=== PATIENT | female | born 1985 | race Caucasian/White ===

== ENCOUNTER 2022-02-10 20:36 | Emergency (ER) | payer OTHER, SELFPAY ==
[2022-02-10 20:51] VITALS: BP 160/80; PULSE 78; RESP 18; TEMP 36.8; O2SAT 99; BMI 37.7
--- NOTE | 2022-02-10 21:22 | CRLHL7_ITS ---
For Patients: As a result of the Cures Act, medical imaging exams and procedure reports are released immediately into your electronic medical record. You may view this report before your referring provider. If you have questions, please contact your health care provider. INDICATION: Syncopal episode. TECHNIQUE: Chest 2 view(s) COMPARISON: None. FINDINGS: Cardiomediastinal silhouette and pulmonary vasculature are normal. No focal consolidation. No pleural effusion, no definite pneumothorax. No acute chest wall abnormality. IMPRESSION: No focal consolidation. Dictated by Loli Wilkinson MD @ 02/10/2022 10:37:18 PM (Electronically Signed)
[2022-02-10 22:01] LABS: Chloride* 104 mmol/L (96-114); Potassium* 4.1 mmol/L (3.6-5.1); Sodium* 137 mmol/L (135-149)
[2022-02-10 22:04] LABS: Creatinine* 0.8 mg/dL (0.5-1.5); Est. Creatinine Clearance* 107.61; Estimated Glomerular Filt Rate 97 ml/min
[2022-02-10 22:05] LABS: Blood Urea Nitrogen* 16 mg/dL (5-24); Calcium* 9.2 mg/dL (8.4-10.6); Carbon Dioxide* 24 mmol/L (20-32); Glucose* 122 mg/dL (60-115)
[2022-02-10 22:06] VITALS: BP 125/80; PULSE 67
[2022-02-10 22:07] VITALS: BP 137/85; PULSE 80
[2022-02-10 22:07] LABS: Basophils Absolute Auto 0.02 K/uL (0.00-0.30); Basophils Percent Auto 0.3 % (0.0-3.0); Eosinophils Absolute Auto 0.07 K/uL (0.00-0.50); Hematocrit 39.5 % (33.0-51.0); Hemoglobin* 13.4 gm/dL (12.0-16.0); Immature Granulocytes Abs Auto 0.04 K/uL (0.00-0.30); Lymphocytes Absolute Auto 2.08 K/uL (0.90-2.90); Lymphocytes Percent Auto 30.5 % (20-44); Mean Corpuscular HGB Conc 34 gm/dL (32-36); Mean Corpuscular Hemoglobin 30 pg (26-34); Mean Corpuscular Volume 89 fL (80-100); Monocytes Percent Auto 7.6 % (0.0-11.0); Platelet Count* 260 K/uL (140-440); RDW Coefficient of Variation % 12.3 % (11.5-15.5); Red Blood Count 4.45 m/uL (4.00-5.20); White Blood Count* 6.83 K/uL (4.50-11.00)
[2022-02-10 22:08] LABS: C Reactive Protein* 0.6 mg/dL (0.5-1.0)
[2022-02-10 22:10] VITALS: BP 137/85; PULSE 80; RESP 18; O2SAT 98
[2022-02-10 22:10] LABS: Slide Review Reflex No
--- NOTE | 2022-02-10 22:10 | ED.SYNCOPE ---
HPI - Syncope General Date Seen: 02/10/22 Chief Complaint: Syncope/Fainted Stated Complaint: FAINTED,POSSIBLE HEART ISSUES Time Seen by Provider: 02/10/22 20:45 Source: patient and family Mode of arrival: ambulatory Limitations: no limitations History of Present Illness HPI narrative: Patient is a 36-year-old female who presents here with her family for evaluation of a syncopal episode that occurred at [employer] approximately 2 hours ago she was walking to the checkout felt hot and flushed and felt the feeling going over her body and then slumped to the ground, is with her young daughter, called 911. When she awoke few seconds later, EMS was there, seeing her, there were initial take was the EKG was normal with occasional PVCs but her blood pressure was slightly elevated in the 180-190 systolic range. Been told in the past that her blood pressure has been elevated has been able to convince her doctor not to start antihypertensives. She denies any chest pain, any shortness of breath, but wonders if this was a cardiac phenomena. She has never before had a episode where she passed out. She denies using alcohol drugs, but she is using a cleansing type diet for the past 2 weeks. She did eat a normal amount today and swears to me that she is drinking normal amount of fluids. The only other finding I can see, is the fact that she has had right leg swelling, for the last 2-3 weeks. No previous history DVTs, PEs, she has no personal cardiac coronary artery disease in her cholesterol is borderline, she is a social smoker when she drinks. She drinks really irregularly in no use of drugs. MD complaint: felt faint and collapsed Onset (ago): hour(s) Witnessed: Yes - by Bystander Injuries sustained associated with event: none Current symptoms: back to baseline Treatments prior to arrival: none Related Data Home Medications Medication Instructions Recorded Confirmed citalopram 40 mg tablet 40 mg PO DAILY 02/10/22 02/10/22 methylphenidate HCl 54 mg 54 mg PO DAILY 02/10/22 02/10/22 tablet,extended release 24 hr (Concerta) Allergies Allergy/AdvReac Type Severity Reaction Status Date / Time cephalexin [From Keflex] AdvReac Mild Nausea Verified 02/10/22 20:57 Penicillins AdvReac Mild Nausea Verified 02/10/22 20:57 Review of Systems Status of ROS: Reports: 10 or more systems reviewed and unremarkable except as noted in History and below [facility] Medical History Anxiety Surgical History History of Social History Smoking Status: Current some day smoker What tobacco products do you use: cigarettes Do you use any of these nicotine containing products: E-Cigarettes Second hand tobacco smoke exposure: Yes How often do you have a drink containing alcohol: never How often do you have six or more drinks on one occasion: Never AUDIT-C Alcohol total score: 0 Non-prescribed substance use: denies use Exam Narrative: Exam Narrative: Patient is seen in room 6 in no apparent distress, speaking to me normally, at baseline. Her pupils are equal round reactive to light there is no scleral icterus or redness, TMs bilaterally are normal her oropharynx is normal there is no adenopathy anterior posterior chains, no meningismus, oropharynx is otherwise normal. JVP is flat with normal carotid upstrokes and cranial nerves 3-12 are normal. Her chest is good air entry bilateral with no wheezing crackles noted heart sounds no clicks murmurs or gallops her abdomen is soft slightly obese there is no guarding no hepato-splenomegal, no tenderness of her abdomen. Skin reveals no petechiae or rashes , she was all extremities independently and well. Neurologically intact in upper lower extremities, Const: Vital Signs, click to edit/add: Vital Signs - 24 hr 02/10/22 20:51 02/10/22 22:06 02/10/22 22:07 Temperature 98.2 F Pulse Rate [Right Pulse Oximeter] 78 Pulse Rate [orthos tatic sitting Puls e Oximeter] 67 Pulse Rate [orthos tatic standing Pul se Oximeter] 80 Respiratory Rate 18 Blood Pressure [Ri ght Upper Arm] 160/80 H Blood Pressure [or thostatic sitting Left Arm] 125/80 Blood Pressure [or thostatic standing ] 137/85 Pulse Oximetry 99 Oxygen Delivery Me thod Room Air 02/10/22 22:10 Temperature Pulse Rate [Right Pulse Oximeter] 80 Pulse Rate [orthos tatic sitting Puls e Oximeter] Pulse Rate [orthos tatic standing Pul se Oximeter] Respiratory Rate 18 Blood Pressure [Ri ght Upper Arm] 137/85 Blood Pressure [or thostatic sitting Left Arm] Blood Pressure [or thostatic standing ] Pulse Oximetry 98 Oxygen Delivery Me thod Room Air Documenting provider has reviewed patient's vital signs: yes Common normals: no apparent distress Course Course Hospital Course: She remained stable in the emergency room her blood pressure came down, her laboratory tests returned normal findings, repeat EKG was also normal, with no changes she did have a occasional PVCs, but I do not think this is the cause of her syncopal episode. Troponins remain normal, her D-dimer was normal, Cardiac ultrasound is done of her heart, tough use due to size of the patient, but no evidence of significant pericardial abnormality, overall function appeared normal, no right ventricular dilatation noted. I was able to ultrasound her right leg, using the Clinton method, there is no no evidence of DVT, with full compressibility of her upper cfv and also her popliteal fossa. This corresponded well to the negative D-dimer. I was unable to save the views, over cardiac ultrasound in her legs, for this reason we will not charge her for these. I explained to them at this point I think the workup is complete, I think we have ruled out a lot of bad things, and most likely this was related to a vasovagal episode, her blood pressure came down nicely, but she is a bit labile with this, I wonder if this is related to some a essential hypertension or possibly the use of the Adderall. She should follow up with primary care for this. She was comfortable with this plan. Return here if increasing chest pain shortness of breath or other episodes and that this syncope recurs again I would consider cardiology evaluation. Vital Signs Vital signs: Initial Vital Signs Temperature 98.2 F 02/10/22 20:51 Temperature Source Temporal Artery Scan 02/10/22 20:51 Pulse Rate 78 02/10/22 20:51 Respiratory Rate 18 02/10/22 20:51 Blood Pressure 160/80 H 02/10/22 20:51 Blood Pressure Mean 106 02/10/22 20:51 Blood Pressure Position Sitting 02/10/22 20:51 Pulse Oximetry 99 02/10/22 20:51 Oxygen Delivery Method 02/10/22 20:51 Vital Signs Temperature 98.2 F 10/13/22 20:51 Pulse Rate 78 02/10/22 20:51 Respiratory Rate 18 02/10/22 20:51 Blood Pressure 160/80 H 02/10/22 20:51 Pulse Oximetry 99 02/10/22 20:51 Oxygen Delivery Method 02/10/22 20:51 Temperature 98.2 F 02/10/22 20:51 Pulse Rate 80 02/10/22 22:10 Respiratory Rate 18 02/10/22 22:10 Blood Pressure 137/85 02/10/22 22:10 Pulse Oximetry 98 02/10/22 22:10 Oxygen Delivery Method 02/10/22 22:10 MDM - Syncope MDM Narrative Medical decision making narrative: Life-threatening differential diagnosis considered include: Cardiac arrhythmia, acute blood loss, and intracranial bleed. Other differential diagnosis include but are not limited to vasovagal syncope, orthostatic syncope, seizure, as well as other etiologies Medical Records Attestation: I reviewed the patient's medical records. Lab Data Attestation: I reviewed the patient's lab results. Labs: Lab Results 02/10/22 02/10/22 02/10/22 Range/Units 21:24 21:37 21:37 WBC 6.83 (4.50-11.00) K/uL RBC 4.45 (4.00-5.20) m/uL Hgb 13.4 (12.0-16.0) gm/dL Hct 39.5 (33.0-51.0) % MCV 89 (80-100) fL MCH 30 (26-34) pg MCHC 34 (32-36) gm/dL RDW Coeff of Sam 12.3 (11.5-15.5) % Plt Count 260 (140-440) K/uL Neut % (Auto) 60.0 (42.0-72.0) % Lymph % (Auto) 30.5 (20-44) % [place] % (Auto) 7.6 (0.0-11.0) % Eos % (Auto) 1.0 (0.0-7.0) % Baso % (Auto) 0.3 (0.0-3.0) % Neut # (Auto) 4.10 (1.7-7.0) K/uL Lymph # (Auto) 2.08 (0.90-2.90) K/uL Raleigh # (Auto) 0.50 (0.00-0.90) K/UL Eos # (Auto) 0.07 (0.00-0.50) K/uL Baso # (Auto) 0.02 (0.00-0.30) K/uL Abs Immat Gran (auto) 0.04 (0.00-0.30) K/uL INR 0.95 (0.91-1.10) APTT 27 (23-33) Seconds D-Dimer Quant (PE/DVT) 0.34 (0.00-0.50) ug/ml Sodium (135-149) mmol/L Potassium (3.6-5.1) mmol/L Chloride (96-114) mmol/L Carbon Dioxide (20-32) mmol/L BUN (5-24) mg/dL Creatinine (0.5-1.5) mg/dL Estimated Creat Clear Estimated GFR ml/min Glucose (60-115) mg/dL Calcium (8.4-10.6) mg/dL C-Reactive Protein (0.5-1.0) mg/dL NT-Pro-B Natriuret Pep (0-125) PG/mL SARS-CoV-2 (PCR) (Negative) Influenza Type A (PCR) (Negative) Influenza Type B (PCR) (Negative) RSV (PCR) (Negative) POC Troponin I 0.00 L (0.01-0.04) ng/ml 02/10/22 02/10/22 02/10/22 Range/Units 21:37 21:37 22:55 WBC (4.50-11.00) K/uL RBC (4.00-5.20) m/uL Hgb (12.0-16.0) gm/dL Hct (33.0-51.0) % MCV (80-100) fL MCH (26-34) pg MCHC (32-36) gm/dL RDW Coeff of Sam (11.5-15.5) % Plt Count (140-440) K/uL Neut % (Auto) (42.0-72.0) % Lymph % (Auto) (20-44) % Raleigh % (Auto) (0.0-11.0) % Eos % (Auto) (0.0-7.0) % Baso % (Auto) (0.0-3.0) % Neut # (Auto) (1.7-7.0) K/uL Lymph # (Auto) (0.90-2.90) K/uL Raleigh # (Auto) (0.00-0.90) K/UL Eos # (Auto) (0.00-0.50) K/uL Baso # (Auto) (0.00-0.30) K/uL Abs Immat Gran (auto) (0.00-0.30) K/uL INR (0.91-1.10) APTT (23-33) Seconds D-Dimer Quant (PE/DVT) (0.00-0.50) ug/ml Sodium 137 (135-149) mmol/L Potassium 4.1 (3.6-5.1) mmol/L Chloride 104 (96-114) mmol/L Carbon Dioxide 24 (20-32) mmol/L BUN 16 (5-24) mg/dL Creatinine 0.8 (0.5-1.5) mg/dL Estimated Creat Clear 107.61 Estimated GFR 97 ml/min Glucose 122 H (60-115) mg/dL Calcium 9.2 (8.4-10.6) mg/dL C-Reactive Protein 0.6 (0.5-1.0) mg/dL NT-Pro-B Natriuret Pep 64 (0-125) PG/mL SARS-CoV-2 (PCR) Negative SARS-CoV-2 (Negative) Influenza Type A (PCR) Negative PCR FLU A (Negative) Influenza Type B (PCR) Negative PCR FLU B (Negative) RSV (PCR) Negative PCR RSV (Negative) POC Troponin I 0.00 L (0.01-0.04) ng/ml Imaging Data Chest x-ray: Attestation: I have reviewed the pertinent imaging results. My impression: Chest x-ray was normal Radiologist's impression: Patient: WILFRED PRINGLE Facility: [facility] Site . Site : 1985 Study: XRay Chest 2V-02/10/2022 10:20:43 PM Ordering Physician: Yari De La Vega Final Report: INDICATION: Syncopal episode. TECHNIQUE: Chest 2 view(s) COMPARISON: None. FINDINGS: Cardiomediastinal silhouette and pulmonary vasculature are normal. No focal consolidation. No pleural effusion, no definite pneumothorax. No acute chest wall abnormality. IMPRESSION: No focal consolidation. Dictated by Loli Wilkinson MD ECG Data Attestation: I personally reviewed and interpreted this ECG as follows: ECG interpretation date: 02/10/22 Prior ECG tracings: not available for review Interpretation: Normal sinus rhythm with a normal EKG, ventricular rate 63, normal QRS, normal QT normal QTC and CA interval Discharge Plan Discharge Clinical Impression: Syncope due to orthostatic hypotension, Vasovagal syncope, Syncope Patient Disposition: Home w/ Parent or Adult Condition: Improved Instructions: Syncope (ED), Hypotension (ED), Near Syncope (ED), Premature Ventricular Contractions (ED) Additional Instructions: I am happy that all your blood tests, EKGs, and tracings were all normal. This is all really good finding, I would recommend if this happens again that she follow up and get evaluated by Cardiology, but I would start there rate now. Lots of fluids and rest, know that if that feeling comes on again that she should lie down, as if he try walking or standing up you will pass out. This happens routinely on Sundays when I see the [facility] here. Follow-up with her primary care physician is suggested, to ensure that they agree with this. And to recheck her blood pressure. The interesting thing is that Adderall causes increased blood pressure, and only missing a day he would still be in your system. Prescriptions: No Action methylphenidate HCl [Concerta] 54 mg tablet extended release 24hr 54 mg PO DAILY Label Comments: TAKE ONE TABLET BY MOUTH DAILY citalopram 40 mg tablet 40 mg PO DAILY Label Comments: take 1 tablet by mouth daily Follow Up/Referrals: Provider,Not a Local [Primary Care Provider] - Stand Alone Forms: ReferStar Info Instructions
[2022-02-10] MEDS: 0.9 % SODIUM CHLORIDE 1000 ml 1,000 ML IV (22:11)
[2022-02-10 22:14] LABS: NT Pro B Type NatriureticPept* 64 PG/mL (0-125)
[2022-02-10 22:17] LABS: INR 0.95 (0.91-1.10); Partial Thromboplastin Time* 27 Seconds (23-33); Prothrombin Time 13.1 Seconds
[2022-02-10 22:20] LABS: D Dimer Quantitative* 0.34 ug/ml (0.00-0.50)
[2022-02-10 22:26] LABS: PCR FLU A Negative PCR FLU A (Negative); PCR FLU B Negative PCR FLU B (Negative); PCR RSV Negative PCR RSV (Negative); SARS PCR* Negative SARS-CoV-2 (Negative)
== END 2022-02-10 23:50 | disposition home or self-care (01) ==
PROVIDERS: Emergency Provider Family Medicine
DX: I95.1 Orthostatic hypotension (principal)
CPT/HCPCS: 36415; 71046; 80048; 83880; 85025; 85379; 85610; 85730; 86140; 87502; 87634; 87635; 93005; 96360; 96361; 99284; J7030

== ENCOUNTER 2024-10-07 11:07 | Emergency (ER) | payer BC, SELFPAY ==
--- OUTSIDE RECORDS SUMMARY | 2024-09-09 14:15 | XMS_ITS | Encounter Summary ---
Author Organization [employer] Address [address] [address] Care Team Providers Care Wire Web Worker Name Role Phone Mike Oliveros APRN, J2EE ANDROID DEVELOPER Primary Care Provide r Encounter Details Date Type Department Care Team (Late st Contact Info) Description 09/09/2024 2:15 PM CDT Nursing Visit [facility] Department [address], [address] [place] [address] Rn, We [facility] [address] [place], [place] [id number] Elevated blood pressure reading (Primary Dx); STEPHANIE (generalized anxiety disorder) Social History Tobacco Use Types Packs/Day Years Used Date Smoking Tobacco: Some Days Cigarettes 0.3 10 Smokeless Tobacco: Never Comments:occasionally Alcohol Use Standard Drinks/Week Comments Yes 1 (1 standard drink = 0.6 oz pur e alcohol) Rare PHQ-2 Answer Date Recorded PHQ-2 Score 2 11/28/2023 Comments No Sex and Gender Information Value Date Recorded Sex Assigned at Not on file Legal Sex Female 4:48 AM CDT Gender Identity Not on file Sexual Orientation Not on file 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 Not on file Not on file Not on file documented as of this encounter Last Filed Vital Signs Vital Sign Reading Time Taken Comments Blood Pressure 151/109 09/09/2024 2:32 PM CDT Pulse 110 09/09/2024 2:32 PM CDT Temperature - - Respiratory Rate - - Oxygen Saturation - - Inhaled Oxygen Concentration - - Weight - - Height - - Body Mass Index - - documented in this encounter Progress Notes * Aleida Guzmán RN - 09/09/2024 2:15 PM CDT RN Emergency Response called at 1:59 pm on 09/09/2024 Brief description of patient and what caused RN stat: Patient was feeling faint and dizzy Patient alert and Oriented? Yes Vital signs obtained were documented every 5-10 minutes? Yes Vital signs: See documented vitals section from this encounter Has patient taken their prescribed medications today? Yes Medications administered? No SUBJECTIVE/OBJECTIVE: Patient reported she was with a friend across the street from the clinic when symptoms started. Patient presented with mild shortness of breath, dizziness, lightheadedness, elevated feelings of panic. Patient is prescribed propranolol to take as needed and last dose was earlier today. Patient takesBP medication at night with last dose last night. Pt reports she feels like this is a panic attack.Pt feels she needs a provider to help her overcome these symptoms. ASSESSMENT & PLAN Patient was alert and orientated x 4. Pt appeared short of breath and was breathing adequately. Patient was practicing deep breathing and sat down to rest. Patient was provided with water and a bloodpressure was taken. Patient denies chest pain and denies difficulty breathing. Pt was walking without issue and reported she felt okay to walk with friend to the car. Pt prefers to be evaluated todayin clinic or urgent care. No appts in clinic so referred to urgent care now. PT was observed leaving without difficulty. Pt did not faint or fall. Vitals: 09/09/24 1432 BP: (!) 151/109 Pulse: (!) 110 Paramedics called: No Disposition: Urgent Care Method of transportation: Private vehicle via friend driving Family or support person present: Yes Patient and family understand plan of care, disposition and have no further questions: Yes Patient will go to [facility] urgent care clinic in [facility] for evaluation. Save my spot In line entered on patient behalf. Aleida England RN 09/09/2024 documented in this encounter Nursing Notes * Aleida Guzmán RN - 09/09/2024 2:15 PM CDT RN Emergency Response called at 1:59 pm on 09/09/2024 Brief description of patient and what caused RN stat: Patient was feeling faint and dizzy Patient alert and Oriented? Yes Vital signs obtained were documented every 5-10 minutes? Yes Vital signs: See documented vitals section from this encounter Has patient taken their prescribed medications today? Yes Medications administered? No SUBJECTIVE/OBJECTIVE: Patient reported she was with a friend across the street from the clinic when symptoms started. Patient presented with mild shortness of breath, dizziness, lightheadedness, elevated feelings of panic. Patient is prescribed propranolol to take as needed and last dose was earlier today. Patient takesBP medication at night with last dose last night. Pt reports she feels like this is a panic attack.Pt feels she needs a provider to help her overcome these symptoms. ASSESSMENT & PLAN Patient was alert and orientated x 4. Pt appeared short of breath and was breathing adequately. Patient was practicing deep breathing and sat down to rest. Patient was provided with water and a bloodpressure was taken. Patient denies chest pain and denies difficulty breathing. Pt was walking without issue and reported she felt okay to walk with friend to the car. Pt prefers to be evaluated todayin clinic or urgent care. No appts in clinic so referred to urgent care now. PT was observed leaving without difficulty. Pt did not faint or fall. Vitals: 09/09/24 1432 BP: (!) 151/109 Pulse: (!) 110 Paramedics called: No Disposition: Urgent Care Method of transportation: Private vehicle via friend driving Family or support person present: Yes Patient and family understand plan of care, disposition and have no further questions: Yes Patient will go to [facility] urgent care clinic in [facility] for evaluation. Save my spot In line entered on patient behalf. Aleida England RN 09/09/2024 documented in this encounter Plan of Treatment Not on file documented as of this encounter Visit Diagnoses Diagnosis Elevated blood pressure reading- Primary Elevated blood pressure reading without diagnosis of hypertension STEPHANIE (generalized anxiety disorder) Generalized anxiety disorder documented in this encounter Care Teams Wire Web Worker Relationship Specialty Start Date End Date Mike Oliveros, COW TENDER, J2EE ANDROID DEVELOPER [id number] [address] [id number] PCP - General Nurse Practitioner 11/09/22 documented as of this encounter
--- OUTSIDE RECORDS SUMMARY | 2024-09-09 15:00 | XMS_ITS | Encounter Summary ---
Author Organization [facility] Address [address] [place] [address] Care Team Providers Care Eligibility Consultant Name Role Phone Mike Oliveros APRN, ICHTHYOLOGIST Primary Care Provide r Reason for Visit * Reason Comments PANIC ATTACK Anxiety/panic attack s have increased in the past month, patient can't seem to relax, having physical manifestations such as SOB, high BP, tachycardia per patient, no nausea, TALLEY No other sx Encounter Details Date Type Department Care Team (Late st Contact Info) Description 09/09/2024 3:00 PM CDT Office Visit [facility] [address] [place] [address] Jeannine George MD [address] [place] [address] Panic attack (HRC) Social History Tobacco Use Types Packs/Day Years [...] Sign Reading Time Taken Comments Blood Pressure 152/105 09/09/2024 3:56 PM CDT Pulse 86 09/09/2024 3:56 PM CDT Temperature 37.1 C (98.7 F) 09/09/2024 3:01 PM CDT Respiratory Rate 18 09/09/2024 3:56 PM CDT Oxygen Saturation 99% 09/09/2024 3:56 PM CDT Inhaled Oxygen Concentration - - Weight - - Height - - Body Mass Index - - documented in this encounter Patient Instructions * Patient Instructions* Jeannine George MD - 09/09/2024 3:00 PM CDT Go to ED if getting worse. Follow up with your mental health provider as soon as possible. * Attachments The following attachments cannot be sent through Care Everywhere. * Panic Attacks ([place]) documented in this encounter Progress Notes * Jeannine George MD - 09/09/2024 3:00 PM CDT History of Present Illness The patient, with anxiety, presents with increased frequency and intensity of panic attacks. She experienced a significant panic attack around 12:30 PM after lunch while attending a seminar. Symptoms included anxiety, dizziness, a spinning sensation, tingling, and a fear of fainting. Despiteusing propranolol and breathing exercises, the symptoms persisted. She has a history of anxiety and has been on citalopram for approximately four years, with no recent changes in dosage. She also has propranolol for as-needed use, Vistaril (hydroxyzine) which she rarely takes, and trazodone for infrequent use to aid sleep. She sees a psychiatrist every three months for medication management, with the last visit occurring recently without any medication adjustments. Over the past month, she has noticed an increase in the frequency and intensity of panic attacks, with the current episode being the most severe since 2013. Her blood pressure was recently measured as very good during a physical exam two weeks ago. Past Medical History: Diagnosis Date Asthma (HRC) Depression (HRC) Depression, major, recurrent (HRC) 03/08/2016 No medication updated Diabetes (HR) Essential (primary) hypertension (HRC) 01/17/2015, no current treatment External hemorrhoids without complication 01/17/2015 STEPHANIE (generalized anxiety disorder) ([facility]) No current treatment, updated Genital HSV ([facility]) GERD (gastroesophageal reflux disease) 03/08/2016 H/O trichomonal vaginitis 01/19/2015 H/O trichomonal vaginitis 01/19/2015 Post depression ([facility]) 07/23/2012 depression ([facility]) Recurrent boils 01/17/2015 Outpatient Medications Prior to Visit Medication Sig Dispense Refill ALBUterol sulfate HFA 108 (90 Base) MCG/ACT inhaler Inhale 2 Puffs 4 times daily as needed for Wheezing. 18 g 3 busPIRone (BUSPAR) 10 MG tablet Take 1 Tablet (10 mg) by mouth two times a day. CELEXA 20 MG tablet Take 2 Tablets (40 mg) by mouth daily. fluticasone-salmeterol (ADVAIR) 100-50 MCG/ACT diskus inhaler Inhale 1 Puff two times a day. 1 Each3 hydrOXYzine pamoate (VISTARIL) 25 MG capsule Take 1-2 Capsules (25-50 mg) by mouth at bedtime as needed. losartan (COZAAR) 25 MG tablet Take 1 Tablet (25 mg) by mouth daily. 90 Tablet 3 methylphenidate (CONCERTA) 36 MG controlled release tablet Take 1 Tablet (36 mg) by mouth daily. propranolol (INDERAL) 20 MG tablet Take 1 Tablet (20 mg) by mouth two times a day. traZODone (DESYREL) 100 MG tablet Take 1 Tablet (100 mg) by mouth daily at bedtime. valACYclovir (VALTREX) 1 g tablet Take 1 Tablet (1,000 mg) by mouth daily. valACYclovir (VALTREX) 500 MG tablet Take one tablet daily for 5 days at symptom onset. 25 Tablet 2 No facility-administered medications prior to visit. Allergies Allergen Reactions Cephalexin Nausea And Vomiting Penicillins Nausea And Vomiting Exam: BP (!) 159/109 (BP Location: Right Arm, BP Cuff Size: Regular) Pulse (!) 102 Temp 37.1 ??C (98.7 ??F) (Oral) Resp 18 LMP 08/06/2024 (Approximate) SpO2 98% Very anxious appearing, sweating, dizzy feeling, a little tachypneic and fidgety Assessment/Plan /MDM She had some improvement in symptoms with the lorazepam. She has a headache still. Will go home [place]. Encounter Diagnosis Name Primary? Panic attack (HRC) We are giving lorazepam 0.5 mg now and will observe for 20 min or so and then if doing better discharge. We will send home script for Xanax 0.25 mg for a few doses and recommend follow up with psych. Jeannine George MD documented in this encounter Nursing Notes * Nathalie De La Fuente RN - 09/09/2024 3:00 PM CDT Velma Ellington is a 38 y.o.female presents to the Urgent Care for PANIC ATTACK (Anxiety/panic attacks have increased in the past month, patient can't seem to relax, having physical manifestations such as SOB, high BP, tachycardia per patient, no nausea, TALLEY //No other sx ) Took propranolol 20 mg at 12 pm * Nathalie De La Fuente RN - 09/09/2024 3:00 PM CDT Patient reports she is feeling better 25 min post lorazepam; feeling calm. documented in this encounter Plan of Treatment Not on file documented as of this encounter Visit Diagnoses Diagnosis Panic attack (HRC) Panic disorder without agoraphobia documented in this encounter Administered Medications Inactive Administered Medications - up to 3 most recent administrations Medication Order MAR Action Action Date Dose Rate Site LORazepam (ATIVAN) tablet 0.5 mg 0.5 mg, Oral, ONCE, On 09/09/24 at 1545, For 1 doseIndications:Panic attack (HRC) Given 09/09/2024 3:30 PM CDT 0.5 mg documented in this encounter Care Teams Eligibility Consultant Relationship Specialty Start Date End Date Mike Oliveros, WARE FINISHER, ICHTHYOLOGIST [address] [place] [address] PCP - General Nurse Practitioner 11/09/22 documented as of this encounter
--- OUTSIDE RECORDS SUMMARY | 2024-09-11 11:00 | XMS_ITS | Encounter Summary ---
[facility] Organization [facility] Address [address] [place] [address] Care Team Providers Care Supervisor Paper Machine Name Role Phone Mike Oliveros APRN, CNP Primary Care Provide r Reason for Visit * Reason Comments Other RECINOS * Procedure/Equipment (Routine) - Closed Specialty Diagnoses / Procedures Referred By Elizabeth t Referred To Contact Diagnoses RECINOS (dyspnea on exertion) Procedures Echocardiogram Mike Oliveros APRN, MILITARY TECHNICIAN [address] [place] [address] Phone: tel: fax: Referral ID Status Reason Start Date Expiration Date Visits Re quested Visits Authorized [id number] Closed 09/10/2024 11/08/2024 1 1 Encounter Details Date Type Department Care Team (Late st Contact Info) Description 09/11/2024 11:00 AM CDT Procedure Visit [facility] [id number] [facility] [address] [place] [address] Other (RECINOS) Social History Tobacco Use Types Packs/Day Years [...] on file documented as of this encounter Progress Notes * Steffany Turner - 09/11/2024 11:00 AM CDT Test completed. documented in this encounter Plan of Treatment Not on file documented as of this encounter Procedures Procedure Name Priority Date/Time Associated Diagnosis Comments ECHOCARDIOGRAM Routine 09/11/2024 10:58 AM CDT RECINOS (dyspnea on exertion) documented in this encounter Results * Echocardiogram (09/11/2024 10:58 AM CDT) 09/11/2024 10:5 8 AM CDT Narrative PN ECHO - 09/11/2024 1:17 PM CDT Procedure type: ECHOCARDIOGRAM Procedure 09/11/2024 10:58 AM date/time: Facility: [place] SUMMARY: 1. Normal left ventricular size and global and regional function. Ejection fraction is visually estimated at 60%. Borderline concentric wall thickening consistent with left ventricular hypertrophy is present. 2. Normal right ventricle size and normal global function. 3. No valve abnormalities of hemodynamic significance noted. No recent prior study is available for comparison. FINDINGS LEFT VENTRICLE: Normal left ventricular size and global and regional function. Borderline concentric wall thickening consistent with left ventricular hypertrophy is present. Left ventricular ejection fraction is visually estimated at 60%. (within normal limits) Normal left ventricular diastolic function. RIGHT VENTRICLE: Normal right ventricle size and normal global function. Normal tricuspid annular plane systolic excursion. (TAPSE) LEFT ATRIUM: Visually, the left atrium appears to be normal. Normal left atrium. Left atrial volume index is 22 mL/m^2. (Normal <34mL/m^2). RIGHT ATRIUM: Normal right atrium. MITRAL VALVE: Mild mitral annular calcification. Trace (physiologic) mitral regurgitation. TRICUSPID VALVE: Normal tricuspid valve structure and function. Trace to mild tricuspid insufficiency noted. Pulmonary artery pressures cannot be estimated due to the absence of adequate TR jet. AORTIC VALVE: The aortic valve is tricuspid. Normal aortic valve structure and function. AORTA/GREAT VESSELS: The following segments of the aorta are normal in size: sinuses of Valsalva and ascending aorta. The inferior vena cava is normal suggesting normal RA pressure. PULMONARY VALVE: Normal pulmonic valve structure and function. Trace pulmonic insufficiency. PERICARDIUM & PLEURA: No pericardial effusion is present. LVOT LVOT diameter: 2.5 cm LVOT Area: 4.9 cm^2 AORTA Sinus of Valsalva: 3.45 cm Sinus of Valsalva Index: 1.91 cm/m Ascending Ao (prox): 3.3 cm Asc Ao (prox) Index: 1.83 cm/m MITRAL VALVE Peak E-wave: 71.6 cm/s Peak A-wave: 49 cm/s E/A ratio: 1.46 Deceleration time: 204 ms LEFT ATRIUM LA dimension (2D): 4.1 cm LA Area (A4C): 19.4 cm^2 LA Volume (BP): 42.3 ml LA Volume (BP) Index: 17.7 ml/m^2 LA Volume (A2C): 32.9 ml LA Volume (A4C): 51.8 ml LA Volume (A2C) Index: 13.7 ml/m^2 LA Volume (A4C) Index: 21.6 ml/m^2 LEFT VENTRICLE LVIDd (2D): 5.3 cm LVIDs (2D): 3.6 cm Septum diastolic (2D): 1.1 cm Post wall diastolic (2D): 1 cm Rel wall thickness: 0.4 LV mass (ASE): 215.2 g LV mass (ASE) Index: 89.8 g/m^2 FS: 31 % LV DIASTOLIC FUNCTION E' septal velocity: 7.5 cm/s E' lateral velocity: 12.9 cm/s A' septal velocity: 12.4 cm/s A' lateral velocity: 7.4 cm/s E/E' Septal: 9.5 E/E' Lateral: 5.6 E/E' Average: 7.5 LEFT VENTRICLE: M-MODE LVEDV (Teich): 135.3 ml LVESV (Teich): 55.9 ml EF (Teichholz): 59 % EF Estimated: 60 % RIGHT VENTRICLE TAPSE: 2.4 cm RV S' velocity: 13.1 cm/s IVC IVC inspiration: 0.5 cm IVC expiration: 1 cm INDICATIONS Dyspnea on Exertion (RECINOS). PROCEDURE 2-D Quality: Adequate quality 2-dimensional echo was performed and interpreted. Doppler Quality: Adequate quality pulse, continuous wave, and color Doppler was performed and interpreted. Contrast medium: Not Applicable Height: 71 in. Weight: 270 lb. Blood pressure: 125 / 85 mmHg BSA: 2.4 m^2 BMI: 37.7 kg/m^2 Rhythm: Sinus DEMOGRAPHICS Patient name: JOSHUA Coronado Date of : 1985 Age: 38 year(s) Gender: Female Procedure Staff Interpreting THOMPSON PERERA MD Professor Of Musicology: Engineer Rf Deployment: CALIN WYLIE Ordering Provider: Mike Oliveros Primary Provider: Mike Oliveros Electronically signed by THOMPSON PERERA MD (Interpreting Professor Of Musicology) on 08/29 at 1:16 PM Procedure Note Thompson Perera MD - 09/11/2024 Procedure type: ECHOCARDIOGRAM Procedure 09/11/2024 10:58 AM date/time: Facility: [place] SUMMARY: 1. Normal left ventricular size and global and regional function. Ejection fraction is visually estimated at 60%. Borderline concentric wall thickening consistent with left ventricular hypertrophy is present. 2. Normal right ventricle size and normal global function. 3. No valve abnormalities of hemodynamic significance noted. No recent prior study is available for comparison. FINDINGS LEFT VENTRICLE: Normal left ventricular size and global and regional function. Borderline concentric wall thickening consistent with left ventricular hypertrophy is present. Left ventricular ejection fraction is visually estimated at 60%. (within normal limits) Normal left ventricular diastolic function. RIGHT VENTRICLE: Normal right ventricle size and normal global function. Normal tricuspid annular plane systolic excursion. (TAPSE) LEFT ATRIUM: Visually, the left atrium appears to be normal. Normal left atrium. Left atrial volume index is 22 mL/m^2. (Normal <34mL/m^2). RIGHT ATRIUM: Normal right atrium. MITRAL VALVE: Mild mitral annular calcification. Trace (physiologic) mitral regurgitation. TRICUSPID VALVE: Normal tricuspid valve structure and function. Trace to mild tricuspid insufficiency noted. Pulmonary artery pressures cannot be estimated due to the absence of adequate TR jet. AORTIC VALVE: The aortic valve is tricuspid. Normal aortic valve structure and function. AORTA/GREAT VESSELS: The following segments of the aorta are normal in size: sinuses of Valsalva and ascending aorta. The inferior vena cava is normal suggesting normal RA pressure. PULMONARY VALVE: Normal pulmonic valve structure and function. Trace pulmonic insufficiency. PERICARDIUM & PLEURA: No pericardial effusion is present. LVOT LVOT diameter: 2.5 cm LVOT Area: 4.9 cm^2 AORTA Sinus of Valsalva: 3.45 cm Sinus of Valsalva Index: 1.91 cm/m Ascending Ao (prox): 3.3 cm Asc Ao (prox) Index: 1.83 cm/m MITRAL VALVE Peak E-wave: 71.6 cm/s Peak A-wave: 49 cm/s E/A ratio: 1.46 Deceleration time: 204 ms LEFT ATRIUM LA dimension (2D): 4.1 cm LA Area (A4C): 19.4 cm^2 LA Volume (BP): 42.3 ml LA Volume (BP) Index: 17.7 ml/m^2 LA Volume (A2C): 32.9 ml LA Volume (A4C): 51.8 ml LA Volume (A2C) Index: 13.7 ml/m^2 LA Volume (A4C) Index: 21.6 ml/m^2 LEFT VENTRICLE LVIDd (2D): 5.3 cm LVIDs (2D): 3.6 cm Septum diastolic (2D): 1.1 cm Post wall diastolic (2D): 1 cm Rel wall thickness: 0.4 LV mass (ASE): 215.2 g LV mass (ASE) Index: 89.8 g/m^2 FS: 31 % LV DIASTOLIC FUNCTION E' septal velocity: 7.5 cm/s E' lateral velocity: 12.9 cm/s A' septal velocity: 12.4 cm/s A' lateral velocity: 7.4 cm/s E/E' Septal: 9.5 E/E' Lateral: 5.6 E/E' Average: 7.5 LEFT VENTRICLE: M-MODE LVEDV (Teich): 135.3 ml LVESV (Teich): 55.9 ml EF (Teichholz): 59 % EF Estimated: 60 % RIGHT VENTRICLE TAPSE: 2.4 cm RV S' velocity: 13.1 cm/s IVC IVC inspiration: 0.5 cm IVC expiration: 1 cm INDICATIONS Dyspnea on Exertion (RECINOS). PROCEDURE 2-D Quality: Adequate quality 2-dimensional echo was performed and interpreted. Doppler Quality: Adequate quality pulse, continuous wave, and color Doppler was performed and interpreted. Contrast medium: Not Applicable Height: 71 in. Weight: 270 lb. Blood pressure: 125 / 85 mmHg BSA: 2.4 m^2 BMI: 37.7 kg/m^2 Rhythm: Sinus DEMOGRAPHICS Patient name: JOSHUA Coronado Date of : 1985 Age: 38 year(s) Gender: Female Procedure Staff Interpreting THOMPSON PERERA MD Professor Of Musicology: Engineer Rf Deployment: CALIN WYLIE Ordering Provider: Mike Oliveros Primary Provider: Mike Oliveros Electronically signed by THOMPSON PERERA MD (Interpreting Professor Of Musicology) on 08/29 at 1:16 PM us Mike Oliveros APRN, CNP ET ECHO ORDERABLES Fi nal Result PN ECHO documented in this encounter Visit Diagnoses Diagnosis RECINOS (dyspnea on exertion) Other dyspnea and respiratory abnormality documented in this encounter Care Teams Supervisor Paper Machine Relationship Specialty Start Date End Date Mike Oliveros APRN, CNP [address] [place] [address] PCP - General Nurse Practitioner 11/09/22 documented as of this encounter
--- OUTSIDE RECORDS SUMMARY | 2024-10-07 11:09 | XMS_ITS | Encounter Summary ---
Author Organization [facility] Address [address] [place] [address] Care Team Providers Care Concrete Sculptor Name Role Phone Mike Oliveros APRN, GOLD PLATER Primary Care Provide r Reason for Visit * Reason Comments Dental Concerns Encounter Details Date Type Department Care Team (Late st Contact Info) Description 05/05/2020 Nurse Triage Careline [address] 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 Please call Re: working patient in for appointment. Clinician route to Flag for care team/Care team pool as patient is expecting a call back. Verified patient identity: Yes with patient Situation/Background (brief explanation of current symptoms/situation): In the upper right of my teeth, I think pieces of the tooth came out a month or two ago, I think it was an old filling. I probably should have come sooner, but now I had a severe throbbing pain overnight in tooth into face/neck/throat. 8/10 constant throbbing pain. Couldn't sleep. Denies facial redness, thinks might be slightly swollen. No fever. States ibuprofen really not helping anymore. Does the patient currently have any of these Covid19 symptoms? (fever >100, sore throat OR new or worsening: cough, loss of taste or smell, shortness of breath) No Covid19 Symptoms - Other symptoms Reviewed with patient pertinent medical history(as it related to the call): Yes Epic list reviewed Reviewed with patient pertinent medications (as they relate to call): Yes Tylenol, ibuprofen, losartan, Celexa, Concerta Reviewed with patient pertinent allergies (as they relate to call): Yes If directing the patient to schedule an appointment or be seen in the appropriate urgent care: In the last 14 days have you had close contact with a person known to have COVID-19 or been instructed to self-isolate? No Reason for Disposition ??? [1] SEVERE pain (e.g., excruciating, unable to do any normal activities) AND [2] not improved 2hours after pain medicine Answer Assessment - Initial Assessment Questions 1. LOCATION: Which tooth is hurting? (e.g., right-side/left-side, upper/lower, front/back) Right upper tooth 2. ONSET: When did the toothache start? (e.g., hours, days) 2.5-3 months ago, more intense last month, worst since last night 3. SEVERITY: How bad is the toothache? (Scale 1-10; mild, moderate or severe) - MILD (1-3): doesn't interfere with chewing - MODERATE (4-7): interferes with chewing, interferes with normal activities, awakens from sleep - SEVERE (8-10): unable to eat, unable to do any normal activities, excruciating pain 8/10 4. SWELLING: Is there any visible swelling of your face? Mild 5. OTHER SYMPTOMS: Do you have any other symptoms? (e.g., fever) No 6. : Is there any chance you are ? When was your last menstrual period? No Protocols used: [id number] PLAN:See Dentist within 4 hours Pt agrees with plan, no further questions. Dental clinic closed at time of call, does not open until 0900, patient states willing to go anywhere, checked with dental scheduling, [facility] open at 0730, patient may try calling there. Patient informed of this information. Nurse also to route message to provider. Advised patient/caller to call back CareLine if there are further questions or concerns or to be seen if situation becomes emergent. The CareLine is available 21/11. Lucy Guillen RN 05/05/2020, 7:34 AM RANCE VERIFICATION SPECIALIST * Kalee Mcadams - 05/05/2020 7:04 AM CST Verified patient identity using three identifiers: Yes Caller's relationship to patient: Self At which care system or clinic is the patient normally seen? [facility] What is your dental question/concern ? Severe At what Dental Clinic is the patient seen? Dental Dental insurance carrier: If [facility]: Has the patient had a new patient exam with Dental on or after 08/29/16: Plan: The current callback time to speak with a nurse is 60. If your symptoms change or worsen, or if you have not received a call back in the stated timeframe, please call us back. RANCE VERIFICATION SPECIALIST documented in this encounter Plan of Treatment Not on file documented as of this encounter Visit Diagnoses Not on filedocumented in this encounter Additional Health Concerns Infection Onset Date Last Indicated Resolved Time R/O COVID19 07/26/2023 07/26/2023 07/27/2023 4:35 AM CDT documented as of this encounter Care Teams Concrete Sculptor Relationship Specialty Start Date End Date Mike Oliveros, TELECOMMUNICATIONS ENGINEER, GOLD PLATER [address] [place] [address] PCP - General Nurse Practitioner 11/09/22 documented as of this encounter
--- OUTSIDE RECORDS SUMMARY | 2024-10-07 11:09 | XMS_ITS | Encounter Summary ---
Author Organization [facility] Address [address] [place] [address] [place] [address] Care Team Providers Care Crusher Feeder Name Role Phone Mike Oliveros APRN, TELEVISION CAMERA OPERATOR Primary Care Provide r Encounter Details Date Type Department Care Team (Late st Contact Info) Description 03/16/2015 Orders Only [facility] [address] [place] [id number] Frank Dupont MD [address] [place] [address] Closed displaced fracture of fifth metatarsal bone of right foot, initial encounter Social History Tobacco Use Types Packs/Day Years Used Date Smoking Tobacco: Never Assessed Comments No Sex and Gender Information Value Date Recorded Sex Assigned at Not on file Legal Sex Female 4:48 AM CDT Gender Identity Not on file Sexual Orientation Not on file documented as of this encounter Plan of Treatment Not on file documented as of this encounter Visit Diagnoses Diagnosis Closed displaced fracture of fifth metatarsal bone of right foot, initial encounter documented in this encounter Additional Health Concerns Infection Onset Date Last Indicated Resolved Time R/O COVID19 03/31/2020 03/31/2020 04/02/2020 11:1 6 AM HIGH SCHOOL LIBRARY MEDIA SPECIALIST COVID19 03/31/2020 03/31/2020 04/21/2020 3:17 AM HIGH SCHOOL LIBRARY MEDIA SPECIALIST R/O COVID19 07/26/2023 07/26/2023 07/27/2023 4:35 AM CDT documented as of this encounter Care Teams Crusher Feeder Relationship Specialty Start Date End Date Mike Oliveros, ALEC, TELEVISION CAMERA OPERATOR [address] [place] [address] PCP - General Nurse Practitioner 11/09/22 documented as of this encounter
--- OUTSIDE RECORDS SUMMARY | 2024-10-07 11:09 | XMS_ITS | Encounter Summary ---
Author Organization [facility] Address [address] [place] [address] Care Team Providers Care Perfume Compounder Name Role Phone Mike Oliveros APRN, CNP Primary Care Provide r Encounter Details Date Type Department Care Team (Late st Contact Info) Description 03/16/2015 Notes/Orders [facility] Orthopedic [facility] [address] [place] [address] [id number] Frank Dupont MD [address] [place] [address] Social History Tobacco Use Types Packs/Day Years [...] COVID19 03/31/2020 03/31/2020 04/02/2020 11:1 6 AM KETTLE CLEANER COVID19 03/31/2020 03/31/2020 04/21/2020 3:17 AM KETTLE CLEANER R/O COVID19 07/26/2023 07/26/2023 07/27/2023 4:35 AM CDT documented as of this encounter Care Teams Perfume Compounder Relationship Specialty Start Date End Date Mike Oliveros APRN, CNP [address] [address] [place] [address] PCP - General Nurse Practitioner 11/09/22 documented as of this encounter
--- OUTSIDE RECORDS SUMMARY | 2024-10-07 11:09 | XMS_ITS | Encounter Summary ---
Author Organization [facility] Address [address] [place] [address] Care Team Providers Care Area Representative Name Role Phone Mike Oliveros APRN, CNP Primary Care Provide r Encounter Details Date Type Department Care Team (Late st Contact Info) Description 10/01/2024 [facility] [address] [facility] [place] [address] Mychart, [place] [address] Social History Tobacco Use Types Packs/Day Years [...] Diagnoses Not on filedocumented in this encounter Care Teams Area Representative Relationship Specialty Start Date End Date Mike Oliveros APRN, CNP [address] [place] Carvalho PCP - General Nurse Practitioner 11/09/22 documented as of this encounter
--- OUTSIDE RECORDS SUMMARY | 2024-10-07 11:09 | XMS_ITS | Clinical Summary ---
Author Organization [facility] Address [address] [place] [address] Care Team Providers Care Ingot Caster Name Role Phone Mike Oliveros APRN, SHENA Primary Care Provide r Source Comments You are receiving this document as you are listed as the primary care provider,follow-up provider, or the patient has been referred to you for consultation.This is in compliance with the Medicare andFire[facility] Regional Medical Centercaid EHR Incentive Program,which states Providers who transition their patient to another setting of careor provider of care or refers their patient to another provider of care shouldprovide summary care record for each transition of care or referral. [email or web address] St[facility] CenterStor[facility] Allergies Active Allergy Reactions Criticality Noted Date Comments Cephalexin Nausea And Vomiting 12/26/2011 Penicillins Nausea And Vomiting 12/26/2011 Medications ALBUterol sulfate HFA 108 (90 Base) MCG/ACT inhalerIndication s:Exercise-induce d bronchospasm (HRC) Inhale 2 Puffs 4 times daily as needed for Wheezing. 18 g 3 2 Active traZODone (DESYREL) 100 MG tablet Take 1 Tablet (100 mg) by mouth daily at bedtime. 2 Active propranolol (INDERAL) 20 MG tablet Take 1 Tablet (20 mg) by mouth two times a day. 4 Active valACYclovir (VALTREX) 500 MG tabletIndications :Genital herpes simplex, unspecified site (HRC) Take one tablet daily for 5 days at symptom onset. 25 Tablet 2 4 Active CELEXA 20 MG tablet Take 2 Tablets (40 mg) by mouth daily. 2 Active methylphenidate (CONCERTA) 36 MG controlled release tablet Take 1 Tablet (36 mg) by mouth daily. 4 Active losartan (COZAAR) 25 MG tabletIndications :Essential hypertension (HRC) Take 1 Tablet (25 mg) by mouth daily. 90 Tablet 3 4 11/28/19 25 Active hydrOXYzine pamoate (VISTARIL) 25 MG capsule Take 1-2 Capsules (25-50 mg) by mouth at bedtime as needed. 4 Active busPIRone (BUSPAR) 10 MG tablet Take 1 Tablet (10 mg) by mouth two times a day. 4 Active valACYclovir (VALTREX) 1 g tablet Take 1 Tablet (1,000 mg) by mouth daily. 4 Active fluticasone-salme terol (ADVAIR) 100-50 MCG/ACT diskus inhalerIndication s:RECINOS (dyspnea on exertion) Inhale 1 Puff two times a day. 1 Each 3 5 Active ALPRAZolam (XANAX) 0.25 MG tablet Take 1 Tablet (0.25 mg) by mouth three times a day as needed for up to 3 days. 10 Tablet 5 09/13/19 25 Hospital, Clinic, or Other Facility Administered Medication Ordered Dose Route Frequency Start Date End Date Status LORazepam (ATIVAN) tablet 0.5 mgIndications:Panic attack (HRC) 0.5 mg OR ONCE 09/09/2024 09/09/2024 Ended Active Problems Problem Noted Date Diagnosed Date Excessive bleeding in the premenopausal period 0 08/20/2024 OCD (obsessive compulsive disorder) 11/28/2023 Attention deficit hyperactiv ity disorder (ADHD), combined type 11/28/2023 Prediabetes 05/24/2021 Low grade squamous intraepit helial lesion on cytologic smear of cervix (LGSIL) 01/28/2019 PCOS (polycystic ovarian syndrome) 04/12/2017 IFG (impaired fasting glucose) 01/05/2017 Thyroid nodule 01/05/2017 Overview (01/22/2020): 06/2016, US- Thyroid. 2 discrete hypoechoic primarily solid nodules in the lower pole measuring 1.0 x 0.7 cm and 2.1 x 1.3 cm. 06/2016- non diagnostic FNA Followed up at [facility] GERD (gastroesophageal reflux disease) 6 Overview (01/05/2017): Intermittent Genital HSV 01/21/2015 Tobacco use 01/17/2015 Overview (11/28/2023): Occasionally smokes with a drink. Updated 10/2023. Obesity (BMI 30-39.9) 01/17/2015 History of MRSA infection 04/08/2014 Hidradenitis suppurativa 04/08/2014 STEPHANIE (generalized anxiety disorder) Overview (01/22/2020): Has been followed by [facility] Resolved Problems Problem Noted Date Diagnosed Date Resolved Date Obesity, unspecified obesity severity, unspecified obesity type 03/15/2017 02/28/2018 HPV in female 01/05/2017 01/28/2019 Overview (01/05/2017): 12/2014 Other HPV types + Depression, major, recurrent 03/08/2016 01/05/2017 Overview (01/05/2017): No medication updated H/O trichomonal vaginitis 01/19/2015 Recurrent boils 01/17/2015 02/28/2018 Essential (primary) hypertension 01/17/2015 01/05/2017 Overview (03/08/2016): , no current treatment External hemorrhoids without complication 01/17/2015 02/28/2018 Post depression 07/23/201203/08 Anxiety 07/23/2012 01/17/2015 Encounters Date Type Department Care Team Description 10/01/2024 [facility] [address] [place] [address] Mychart, Generic Provider 09/11/2024 11:00 AM CDT Procedure Visit [facility] [address] [facility] [address] [place] [address] Other (RECINOS) 09/09/2024 3:00 PM CDT Office Visit [facility] [address] [facility] [address] [place] [address] Jeannine George MD Panic attack (HRC) 09/09/2024 2:15 PM CDT Nursing Visit [facility] [address] [place] [address], [address] [place] [address] Rn, We Nursing Elevated blood pressure reading (Primary Dx); STEPHANIE (generalized anxiety disorder) 08/20/2024 9:30 AM CDT Lab Visit [facility] [address] [place] [address] Prediabetes; Essential hypertension (HRC) 08/20/2024 9:00 AM CDT Office Visit [address] [address] Mike Oliveros, ALEC, SHENA Essential hypertension (HRC) (Primary Dx); RECINOS (dyspnea on exertion); Wheezing; Prediabetes; Encounter for immunization 08/20/2024 Results Follow-Up [address] [address] Mike Oliveros, ALEC, BOWLING PIN REFINISHER from Last 3 Months Immunizations Immunization Administration Dates Next Due DTaP 03/03/1992, 8,02/03/1987,1986 HepB Adult (Engerix-B, 20+ y rs, 3 dose series) 01/22/2020 Influenza IIV4 (Quadrivalent ) 0.5mL (19271) 02/09/2021,01/04/2020,01/16/2019,2016 MMR 08/05/1986 OPV, Trivalent (Orimune or tOPV) 992,03/15/1988,02/03/1987,1986 PCV20 (Delgbdd16) 08/20/2024 PPSV23 (Pneumovax) 01/22/2020 Pfizer Monovalent 12+ Purple Top 01/03/2021,08/0 06/2020 TB Skin Test (PPD) 05/04/2021,,04/02/2018,2017,03/07/2018,01/29/2018 TDAP (ADACEL) 07/14/2009 Tdap 11/28/2023 Family History Medical History Relation Name Comments Cataract Father Hyperlipidemia Father Diabetes Mother Type 2. Diabetes Maternal Grandmother Cancer, Breast Paternal Grandmother late 70s Stroke Paternal Grandmother Anesthesia Reaction Negative Family History Bleeding Disorder Negative Family History Clotting Disorder Negative Family History Relation Name Status Comments Father Alive Mother Alive Brother 1 Alive Brother 2 Alive Maternal Grandfather Maternal Grandmother Paternal Grandfather Paternal Grandmother Sister 1 Alive Sister 2 Alive Sister 3 Alive Sister 4 Alive Sister 5 Alive Sister 6 Alive Social History Tobacco Use Types Packs/Day Years Used Date Smoking Tobacco: Some Days Cigarettes 0.3 10 Smokeless Tobacco: Never Tobacco Cessation:Ready to Q uit: Not Asked; Counseling Given: Not Answered Comments:occasionally Alcohol Use Standard Drinks/Week Comments Yes [...] file Not on file Not on file Last Filed Vital Signs Vital Sign Reading Time Taken Comments Blood Pressure 152/105 09/09/2024 3:56 PM CDT Pulse 86 09/09/2024 3:56 PM CDT Temperature 37.1 C (98.7 F) 09/09/2024 3:01 PM CDT Respiratory Rate 18 09/09/2024 3:56 PM CDT Oxygen Saturation 99% 09/09/2024 3:56 PM CDT Inhaled Oxygen Concentration - - Weight 122.5 kg (270 lb) 08/20/2024 8:43 AM CDT Height 180.3 cm (5' 11) 08/20/2024 8:43 AM CDT Body Mass Index 37.66 08/20/2024 8:43 AM CDT Plan of Treatment Health Maintenance Due Date Last Done Comments HepB Vaccine (2) 02/19/2020 01/22/2020 COVID-19 Vaccine (3 - season) 2023 01/03/2021, 12/01/2020 Influenza Vaccine (Season Ended) 2024 02/09/2021, 01/04/2020, 01/16/2019, Additional history exists Prediabetes: HGBA1C 08/20/2025 08/20/2024, 11/03/2023, 05/21/2021, Additional history exists Adult Preventive Visit 10/30/2025 , 05/21/2021, 01/22/2020, Additional history exists Cervical Cancer Screening 10/30/20262023, 10/31/2023, 05/21/2021, Additional history exists DTaP/Tdap/Td Vaccine (8 - Tdap) 11/27/2033 11/28/2023, 12/21/2012 (Completed), 07/14/2009, Additional history exists Zoster/Shingles Vaccine (1 of 2) 2034 IPV (Polio) Vaccine Completed 03/03/1992, 03/15/1988, 02/03/1987, Additional history exists HIV Screening (Preventive Services) Completed 01/17/2015 Hep C Screening (Preventive Services) Completed 01/17/2015 Pneumococcal Vaccine Completed 08/20/2024, 01/22/20 20 HPV Vaccine Aged Out No longer eligi ble based on patient's age to complete this topic HepA Vaccine Aged Out No longer eligi ble based on patient's age to complete this topic Hib Vaccine Aged Out No longer eligi ble based on patient's age to complete this topic MCV4 Vaccine Aged Out No longer eligi ble based on patient's age to complete this topic Meningococcal B Vaccine Aged Out No l onger eligible based on patient's age to complete this topic Procedures Procedure Name Priority Date/Time Associated Diagnosis Comments ECHOCARDIOGRAM Routine 09/11/2024 10:58 AM CDT RECINOS (dyspnea on exertion) BASIC METABOLIC PANEL Routine 08/20/2024 9:27 AM CDT Essential hypertension (HRC) HGB A1C Routine 08/20/2024 9:27 AM CDT Prediabetes HPV WITH 16 18 GENOTYPING, CERVICAL/ENDOCERVICAL Routine 10/31/2023 1:55 PM CDT Annual physical exam HIV ANTIBODY Routine 01/17/2015 11:18 AM CDT Routine screening for STI (sexually transmitted infection) HEPATITIS C ANTIBODY, WITH REFLEX (ANTI-HCV) Routine 01/17/2015 11:18 AM CDT Routine screening for STI (sexually transmitted infection) from Last 3 Months or Most Recently Relevant to Health Maintenance Results * Echocardiogram (09/11/2024 10:58 AM CDT) 09/11/2024 10:5 8 AM CDT Narrative PN ECHO - 09/11/2024 1:17 PM CDT Procedure type: ECHOCARDIOGRAM Procedure 09/11/2024 10:58 AM date/time: Facility: [facility] SUMMARY: 1. Normal left ventricular size and [...] 38 year(s) Gender: Female Procedure Staff Interpreting THANG PERERA MD Filler Spreader: It Auditor: CALIN WYLIE Ordering Provider: Mike Oliveros Primary Provider: Mike Oliveros Electronically signed by THANG PERERA MD (Interpreting Filler Spreader) on 08/29 at 1:16 PM Procedure Note Thang Perera MD - 09/11/2024 Procedure type: ECHOCARDIOGRAM Procedure 09/11/2024 10:58 AM date/time: Facility: [facility] SUMMARY: 1. Normal left ventricular size and [...] 38 year(s) Gender: Female Procedure Staff Interpreting THANG PERERA MD Filler Spreader: It Auditor: CALIN WYLIE Ordering Provider: Mike Oliveros Primary Provider: Mike Oliveros Electronically signed by THANG PERERA MD (Interpreting Filler Spreader) on 08/29 at 1:16 PM us Mike Oliveros CHAIR INSPECTOR AND LEVELER, BOWLING PIN REFINISHER ET ECHO ORDERABLES Fi nal Result PN ECHO * (ABNORMAL) Basic Metabolic Panel (08/20/2024 9:27 AM [facility]) Sodium 140 136 - 145 mmol/L 08/20/2024 11:08 AM [facility] Potassium 4.8 3.5 - 5.1 mmol/L 08/20/2024 11:08 AM [facility] Chloride 105 98 - 109 mmol/L 08/20/2024 11:08 AM [facility] CO2 26 20 - 29 mmol/L 08/20/2024 11:08 AM [facility] Anion Gap 9 6 - 16 mmol/L 08/20/2024 11:08 AM [facility] Calcium 9.5 8.4 - 10.4 mg/dL 08/20/2024 11:08 AM [facility] BUN 10 7 - 26 mg/dL 08/20/2024 11:08 AM [facility] Creatinine 0.71 0.55 - 1.02 mg/dL 08/20/2024 11:08 AM [facility] Glucose 121(H) 70 - 100 mg/dL 08/20/2024 11:08 AM [facility] Comment:The given reference range is for the fasting state. Non-fasting reference range for glucose is 70 - 180 mg/dL. GFR, Estimated >60 >60 mL/min/1.7 3m2 08/20/2024 11:08 AM [facility] Hours Fasting 11.0 8 - 12 Hours 08/20/2024 11:08 AM [facility] Blood Venipuncture / Unknown 08/20/2024 9:27 AM CDT 08/20/2024 9:27 AM CDT Mike Oliveros APRN, BOWLING PIN REFINISHER LAB_1 Final Result [facility] [address] [place] [address] * (ABNORMAL) Hgb A1C (08/20/2024 9:27 AM CDT) Hemoglobin A1C (Rapid) 6.3(H) <=5.6 % 08/20/2024 9:46 AM [facility] Estimated Average Glucose (Calc) 134 < 117 mg/dL 08/20/2024 9:46 AM [facility] Comment:Estimated average gl ucose (eAG) converts A1c into glucose units (mg/dL) and estimates average glucose over the past approximately 3 months. The eAG reference interval (<117 mg/dL) corresponds to an A1c of <5.7%. Blood Venipuncture / Unknown 08/20/2024 9:27 AM CDT 08/20/2024 9:27 AM CDT Narrative [facility] - 08/20/2024 9:46 AM CDT For patients not previously diagnosed with diabetes: 5.7-6.4%: Increased risk for diabetes 6.5% and greater: Diagnostic for diabetes For patients diagnosed with diabetes: <8.0%: Goal of therapy for ages 18-75 Clinicians may recommend a higher or lower goal for specific individuals. The test method used for this Hemoglobin A1c result can experience interference from elevated hemoglobin and other hemoglobin variants. In patients with results that do not correlate clinically, contact the lab for further direction. Mike Oliveros APRN, BOWLING PIN REFINISHER LAB_1 Final Result [facility] [address] [place] [address], [facility] * HPV Genotyping PCR (Cervical/Endocervical ONLY) (10/31/2023 1:55 PM CDT) HPV High Risk Type 16 PCR Not Detected Not detected 2023 11:24 AM CDT [facility] HPV High Risk Type 18 PCR Not Detected Not Detected 2023 11:24 AM CDT [facility] HPV High Risk Other Than 16/18 Not Detected Not detected 2023 11:24 AM CDT [facility] Cervical Broom ENTIRE ENDOCERVIX / Unknown 10/31/2023 1:55 PM CDT 10/31/2023 3:16 PM CDT Narrative [facility] - 2023 11:24 AM CDT The [facility] HPV test is a qualitative in vitro test for the detection of Human Papillomavirus in [facility] patient specimens. The test utilizes amplification of target DNA by Polymerase Chain Reaction (PCR) and nucleic acid hybridization for the detection of 14 high-risk (HR) HPV types. The assay tests for high risk types (16, 18, 31, 33, 35, 39, 45, 51, 52, 56, 58, 59, 66, and 68). Kaylyn Carpio APRN, CNM LAB_1 Final Result Performing Organization Address [facility] [place] [address], [facility] * HIV ANTIBODY (01/17/2015 11:18 AM CDT) Pathologist [facility] HIV 1/HIV 2 SEE BELOW Negative (Non Reacti HP CONVERSION Comment: Negative (Non Reactive) HIV Antibody testing may be falsely negative during the window period. If the patient has had recent exposure (within the past four weeks), consider contacting Infectious Diseases for clarification. Performed at [facility], [address] [place] [address] 01/17/2015 11:1 8 AM CDT 01/17/2015 6:27 PM CDT us Yarelis Travis APRN, BOWLING PIN REFINISHER LAB_1 Lorna l Result HP CONVERSION * Hepatitis C Antibody, with Reflex (01/17/2015 11:18 AM CDT) Hepatitis C Antibody Non-React Non-Reacti ve HP CONVERSION 01/17/2015 11:1 8 AM CDT 01/17/2015 6:27 PM CDT Narrative HP CONVERSION - 01/17/2015 8:01 [place] [address] Yarelis Travis APRN, SHENA LAB_1 Lorna l Result HP CONVERSION from Last 3 Months or Most Recently Relevant to Health Maintenance Insurance [facility] OUT OF STATE [place] AD[place] DENT[place] BCBS OUT OF STATE Advance Directives * Full Code (Latest Code Status on File) Date Activated Date Inactivated Comments 09/14/2016 9:53 AM 09/15/2016 12:58 PM Care Teams Ingot Caster Relationship Specialty Start Date End Date Mike Oliveros, CHAIR INSPECTOR AND LEVELER, BOWLING PIN REFINISHER [id number] [place] [address] PCP - General Nurse Practitioner 11/09/22
--- OUTSIDE RECORDS SUMMARY | 2024-10-07 11:09 | XMS_ITS | Encounter Summary ---
Author Organization [facility] Address [address], [place] [address] Care Team Providers Care Treasury Specialist Name Role Phone Mike Oliveros APRN, CNP Primary Care Provide r Reason for Referral * Consult/Transfer Care (Routine) - New Request Specialty Diagnoses / Procedures Referred By Contjamison t Referred To Contact Cardiology Diagnoses RECINOS (dyspnea on exertion) Essential hypertension (HRC) Left ventricular hypertrophy by electrocardiogram Mike Oliveros APRN, CNP [address] [place] [address] Phone: tel: fax: Referral ID Status Reason Start Date Expiration Date V isits Requested Visits Authorized [id number] New Request 09/11/2024 12/11/2025 1 1 Scheduling Instructions Your clinician has recommended an appointment with [facility]. You can quickly schedule your appointment by signing in to your online account at [email or web address] or through the text message you may have received. You can also make an appointment by calling [phone]. We also suggest you call your health insurance provider about your benefits and coverage for this appointment. Question Answer Appointment Urgency? Non-Urgent Reason for visit? dyspnea on exertion, LVH Encounter Details Date Type Department Care Team (Late st Contact Info) Description 08/20/2024 Results Follow-Up [facility] [address] [place] [address] Mike Oliveros APRN, SPOT WELDER BODY ASSEMBLY [address] [place] Car[place] [address] Social History Tobacco Use Types Packs/Day Years [...] as of this encounter Plan of Treatment Scheduled Referrals Name Type Priority Associated Diagnoses Orde r Schedule Cardiology Consult-Adults Referral Routine RECINOS (dyspnea on exertion) Essential hypertension (HRC) Left ventricular hypertrophy by electrocardiogram Ordered: 09/11/2024 documented as of this encounter Visit Diagnoses Diagnosis RECINOS (dyspnea on exertion)- Primary Other dyspnea and respiratory abnormality Essential hypertension (HRC) Unspecified essential hypertension Left ventricular hypertrophy by electrocardiogram documented in this encounter Care Teams Treasury Specialist Relationship Specialty Start Date End Date Mike Oliveros APRN, SPOT WELDER BODY ASSEMBLY [address] [place] Car[place] [address] PCP - General Nurse Practitioner 11/09/22 documented as of this encounter
--- OUTSIDE RECORDS SUMMARY | 2024-10-07 11:10 | XMS_ITS | Clinical Summary ---
Author Organization [facility] Address [address] [place] [id number] Care Team Providers Care Cvt Tech Name Role Phone Jenny Sheri Woodall [facility] - Primary Care Provider Allergies Active Allergy Reactions Criticality Noted Date Comments Cephalexin Nausea And Vomiting 02/28/2012 Penicillins Nausea And Vomiting 02/28/2012 Medications valACYclovir (VALTREX) 500 mg tablet Take 500 mg by mouth once daily. 0 Active methylphenidate HCl 54 mg Extended-Release tablet Take 54 mg by mouth. 0 Active fluticasone propion-salmeter oL 100-50 mcg/dose diskus inhaler Inhale 1 Puff by mouth two times daily. 5 Active hydrOXYzine pamoate 25 mg capsule Take 25-50 mg by mouth one time if needed. 4 Active hydroCHLOROthiaz sangita 12.5 mg tabletIndication s:Primary hypertension Take 1 Tablet (12.5 mg) by mouth once daily. 30 Tablet 1 5 Active losartan 50 mg tabletIndication s:Primary hypertension,Hyp ertensive left ventricular hypertrophy, without heart failure Take 1 Tablet (50 mg) by mouth once daily. 30 Tablet 1 5 Active sertraline 100 mg tabletIndication s:Panic attack,Anxiety Take 1 Tablet (100 mg) by mouth once daily in the morning. 30 Tablet 1 5 Active busPIRone 15 mg tabletIndication s:Panic attack,Anxiety Take 1 Tablet (15 mg) by mouth two times daily. 60 Tablet 1 5 Active LORazepam 0.5 mg tabIndications:P anic attack Take 1 Tablet (0.5 mg) by mouth every 6 hours if needed for Anxiety. 15 Tablet 5 Active albuterol HFA (Proventil HFA) 90 mcg/actuation inhalerIndicatio ns:Mild intermittent asthma without complication (HC) Inhale 2 Puffs by mouth every 4 hours if needed for Wheezing 1st choice. 1 Each 1 5 Active albuterol HFA (Proventil HFA) 90 mcg/actuation inhalerIndicatio ns:Wheezing Inhale 2 Puffs by mouth every 4 hours if needed for Wheezing 1st choice. 1 Each 1 09/18/19 25 Discontinu ed(Reorder (E-cancel not sent)) citalopram (CELEXA) 40 mg tablet Take 40 mg by mouth. 0 09/18/19 25 Discontinu ed(*Med complete/R egimen complete/L evel of care change) busPIRone 10 mg tablet Take 10 mg by mouth two times daily. 4 09/18/19 25 Discontinu ed(*Medica tion adjustment ) losartan 25 mg tablet Take 25 mg by mouth once daily. 4 09/18/19 Discontinu ed(*Medica tion adjustment ) propranoloL 20 mg tablet Take 20 mg by mouth two times daily. 4 09/18/19 25 Discontinu ed(*Med complete/R egimen complete/L evel of care change) Active Problems Problem Noted Date Diagnosed Date Elevated transaminase level 09/19/2024 Thyroid nodule 09/17/2024 Mild intermittent asthma without complication Anxiety 09/17/2024 Panic attack 09/17/2024 Hypertensive left ventricula r hypertrophy, without heart failure 09/17/2024 Primary hypertension 09/17/2024 STEPHANIE (generalized anxiety disorder) 09/17/2024 Overview (09/17/2024): Has been followed by [facility] Class 2 severe obesity with body mass index (BMI) of 35 to 39.9 with serious comorbidity 09/17/2024 Attention deficit hyperactiv ity disorder (ADHD), combined type 11/28/2023 OCD (obsessive compulsive disorder) 11/28/2023 Prediabetes 05/24/2021 Low grade squamous intraepit helial lesion on cytologic smear of cervix (LGSIL) 01/28/2019 PCOS (polycystic ovarian syndrome) 04/12/2017 GERD (gastroesophageal reflux disease) 6 Overview (09/17/2024): Intermittent Genital HSV 01/21/2015 Hidradenitis suppurativa 04/08/2014 Encounters Date Type Department Care Team Description 10/07/2024 Nurse Triage [facility] Centralized Nurse Triage Sheri Alvarado [facility] - Slow Heartbeat 09/17/2024 9:40 AM CDT Office Visit [facility] [address] [place] [address] Oswaldo Machado MD Medication Management; Establish Care 09/17/2024 Travel from Last 3 Months Immunizations Immunization Administration Dates Next Due DTaP 03/03/1992, 8,02/03/1987,1986 Hepatitis B (Adult) 01/22/2020 Influenza, IIV4 01/04/2020,01/16/2019,02/03/2017 MMR 08/05/1986 Oral Polio Vaccine 03/03/1992, 8,02/03/1987,1986 Pneumococcal Conj 20-valent (Prevnar 20) 08/20/2024 Pneumococcal Poly,23-Valent (Pneumovax) 01/22/2020 Tdap 11/28/2023,07/14/2009 Tuberculin (PPD) 05/04/2021,,04/02/2018,2017,03/07/2018,01/29/2018 Social History Tobacco Use Types Packs/Day Years Used Date Smoking Tobacco: Some Days Smokeless Tobacco: Never Alcohol Use Standard Drinks/Week Comments Yes 0 (1 standard drink = 0.6 oz pur e alcohol) social PHQ-2 Answer Date Recorded PHQ-2 TOTAL SCORE 1 09/17/2024 Comments No Sex and Gender Information Value Date Recorded Sex Assigned at Not on file 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 Gender Identity Not on file Sexual Orientation Not on file Obstetrics History Para Term AB IAB SAB Ectopic Multiple Livin g Live Births 1 Date Outcome GA Total Labor Labor/2nd/3rd Weight Sex Type Anes PTL Meri A1 A5 Name Clin Last Filed Vital Signs Vital Sign Reading Time Taken Comments Blood Pressure 132/100 09/17/2024 9:54 AM CDT Pulse 96 09/17/2024 9:54 AM CDT Temperature 36.8 C (98.2 F) 01/27/2021 8:32 AM CDT Respiratory Rate 16 01/27/2021 8:32 AM CDT Oxygen Saturation 95% 01/27/2021 8:32 AM CDT Inhaled Oxygen Concentration - - Weight 122.9 kg (271 lb) 09/17/2024 9:54 AM CDT Height 180.3 cm (5' 11) 09/17/2024 9:54 AM CDT Body Mass Index 37.8 09/17/2024 9:54 AM CDT Plan of Treatment Upcoming Encounters Date Type Department Care Team (Late st Contact Info) Description 10/08/2024 9:40 AM CDT Office Visit [facility] [address] [place] [address] [place] [address] [place] [address] Health Maintenance Due Date Last Done Comments HIV for age 15-65 12/09/1999 Hepatitis C screening for ag e 18-79 2002 Hepatitis B series for 19+ ( 2 of 3 - 19+ 3-dose series) 02/19/2020 01/22/2020 COVID-19 vaccine series ( season) 2023 01/03/2021, 12/01/2020 Influenza Vaccine (Season Ended) 2024 01/04/2020, 01/16/2019, 02/03/2017 BMI (ht and wt on same day) for age 18+ 09/17/2025 09/17/2024 Depression screening for age 12+ 09/17/2025 09/18/19 25 Pap test for age 21-65 10/30/2026 4 (Verified in Care Everywhere or Patient Record) Tetanus booster 11/27/2033 11/28/2023, 07/14/2009 Tdap Completed 11/28/2023, 07/14/2009 Pneumococcal series for age 6-49 Completed 08/21/19, 01/22/2020 Procedures Procedure Name Priority Date/Time Associated Diagnosis Comments TSH WITH REFLEX Routine 09/17/2024 10:34 AM CDT Anxiety CBC WITH AUTO DIFFERENTIAL Routine 09/17/2024 10:34 AM CDT Anxiety COMP METABOLIC PANEL Routine 09/17/2024 10:34 AM CDT Anxiety LIPID PANEL W REFLEX MEASURED LDL Routine 09/17/2024 10:34 AM CDT Lipid screening from Last 3 Months Results * TSH WITH REFLEX (09/17/2024 10:34 AM CDT) TSH W/REFLEX TO FT4 0.82 mIU/L [facility] Comment: Reference Range > or = 20 Years 0.40-4.50 Ranges First trimester 0.26-2.66 Second trimester 0.55-2.73 Third trimester 0.43-2.91 Blood BLOOD SPECIMEN / Unknown 09/17/2024 10:34 AM CDT 09/17/2024 10:35 AM CDT Oswaldo Machado MD CHEMISTRY Final Result [facility] [address] [place] [address], [facility] [address] [place] [address] * (ABNORMAL) LIPID PANEL W REFLEX MEASURED LDL (09/17/2024 10:34 AM CDT) CHOLESTEROL, TOTAL 216(H) <200 mg/dL [facility] HDL CHOLESTEROL 50 > OR = 50 mg/dL [facility] TRIGLYCERIDES 253(H) <150 mg/dL [facility] Comment: If a non-fasting specimen was collected, consider repeat triglyceride testing on a fasting specimen if clinically indicated. Zhanna et al. J. of Clin. Lipidol. 2015;9:129-169. LDL-CHOLESTEROL 127(H) mg/dL (calc) [facility] Comment: Reference range: <100 Desirable range <100 mg/dL for primary prevention; <70 mg/dL for patients with CHD or diabetic patients with > or = 2 CHD risk factors. LDL-C is now calculated using the Annie calculation, which is a validated novel method providing better accuracy than the Friedewald equation in the estimation of LDL-C. Joe SS et al. RUPERT. 2013;310(19): 5359-3120 (http://education.TopTenREVIEWS/faq/AUN207) CHOL/HDLC RATIO 4.3 <5.0 (calc) [facility] NON HDL CHOLESTEROL 166(H) <130 mg/dL (calc) [facility] Comment: For patients with diabetes plus 1 major ASCVD risk factor, treating to a non-HDL-C goal of <100 mg/dL (LDL-C of <70 mg/dL) is considered a therapeutic option. Blood BLOOD SPECIMEN / Unknown 09/17/2024 10:34 AM CDT 09/17/2024 10:35 AM CDT Oswaldo Machado MD CHEMISTRY Final Result [facility] [address] [place] [address], [facility] [address] [place] [address] * CBC AND DIFFERENTIAL (09/17/2024 10:34 AM CDT) WHITE BLOOD CELL COUNT 4.5 3.8 - 10.8 Thousand/u L [facility] RED BLOOD CELL COUNT 4.67 3.80 - 5.10 Million/uL [facility] HEMOGLOBIN 13.8 11.7 - 15.5 g/dL [facility] HEMATOCRIT 41.5 35.0 - 45.0 % [facility] MCV 88.9 80.0 - 100.0 fL [facility] MCH 29.6 27.0 - 33.0 pg [facility] MCHC 33.3 32.0 - 36.0 g/dL [facility] Comment: For adults, a slight decrease in the calculated MCHC value (in the range of 30 to 32 g/dL) is most likely not clinically significant; however, it should be interpreted with caution in correlation with other red cell parameters and the patient's clinical condition. RDW 13.3 11.0 - 15.0 % [facility] PLATELET COUNT 283 140 - 400 Thousand/u L [facility] MPV 9.7 7.5 - 12.5 fL [facility] ABSOLUTE NEUTROPHILS 2,714 1,500 - 7,800 cells/uL [facility] ABSOLUTE LYMPHOCYTES 1,328 850 - 3,900 cells/uL [facility] ABSOLUTE MONOCYTES 383 200 - 950 cells/uL [facility] ABSOLUTE EOSINOPHILS 59 15 - 500 cells/uL [facility] ABSOLUTE BASOPHILS 18 0 - 200 cells/uL [facility] NEUTROPHILS 60.3 % [facility] LYMPHOCYTES 29.5 % [facility] MONOCYTES 8.5 % [facility] EOSINOPHILS 1.3 % [facility] BASOPHILS 0.4 % [facility] Blood BLOOD SPECIMEN / Unknown 09/17/2024 10:34 AM CDT 09/17/2024 10:35 AM CDT us Oswaldo Machado MD HEMATOLOGY Final Result [facility] [address] [place] [address], [facility] [address] [place] [address] * (ABNORMAL) COMP METABOLIC PANEL (09/17/2024 10:34 AM CDT) GLUCOSE 145(H) 65 - 99 mg/dL [facility] Comment: Fasting reference interval For someone without known diabetes, a glucose value >125 mg/dL indicates that they may have diabetes and this should be confirmed with a follow-up test. UREA NITROGEN (BUN) 8 7 - 25 mg/dL [facility] CREATININE 0.66 0.50 - 0.97 mg/dL [facility] EGFR 114 > OR = 60 mL/min/1. 73m2 [facility] BUN/CREATININE RATIO SEE NOTE: 6 - 22 (calc) [facility] Comment: Not Reported: BUN and Creatinine are within reference range. SODIUM 137 135 - 146 mmol/L [facility] POTASSIUM 4.3 3.5 - 5.3 mmol/L [facility] CHLORIDE 104 98 - 110 mmol/L [facility] CARBON DIOXIDE 22 20 - 32 mmol/L [facility] CALCIUM 9.3 8.6 - 10.2 mg/dL [facility] PROTEIN, TOTAL 6.9 6.1 - 8.1 g/dL [facility] ALBUMIN 4.3 3.6 - 5.1 g/dL [facility] GLOBULIN 2.6 1.9 - 3.7 g/dL (calc) [facility] ALBUMIN/GLOBULIN RATIO 1.7 1.0 - 2.5 (calc) [facility] BILIRUBIN, TOTAL 1.0 0.2 - 1.2 mg/dL [facility] ALKALINE PHOSPHATASE 50 31 - 125 U/L [facility] AST 29 10 - 30 U/L [facility] ALT 49(H) 6 - 29 U/L [facility] Blood BLOOD SPECIMEN / Unknown 09/17/2024 10:34 AM CDT 09/17/2024 10:35 AM CDT us Oswaldo Machado MD CHEMISTRY Final Result [facility] [address] [place] [address], [place] [phone] [facility] [address] [place] [address] from Last 3 Months Insurance [facility] [place] [id number] Care Teams Cvt Tech Relationship Specialty Start Date End Date Sheri Alvarado [facility] - [id number] [place] VIO[place]TTA Garcia [phone] PCP - General 01/27/21
[2024-10-07 11:22] VITALS: BP 138/86; PULSE 74; RESP 20; TEMP 36.7; O2SAT 98; BMI 37.7
--- NOTE | 2024-10-07 11:38 | ED.GENADULT ---
HPI - General Adult General Chief complaint: Arrhythmia/Palpitations Stated complaint: Low heartrate Time Seen by Provider: 10/07/24 11:13 History of Present Illness HPI narrative: This 38-year-old female comes in with concern about bradycardia. She is wearing a Apple watch that showed heart rate at 40 and then it would switch to 80 beats per minute. She states that she feels okay. She may have felt a little bit of lightheadedness. She is taking losartan and hydrochlorothiazide and the dosage was increased recently. She is not on any rate controlling medications and does not report any chest pain or history of dysrhythmia. Related Data Home Medications ?Medication ?Instructions ?Recorded ?Confirmed methylphenidate HCl 54 mg 54 mg PO DAILY 02/10/22 10/07/24 tablet,extended release 24 hr (Concerta) albuterol sulfate 90 mcg/actuation inhalation 06/16/22 07/28/23 aerosol inhaler (Ventolin HFA) valacyclovir 500 mg tablet 500 mg PO 06/16/22 07/28/23 buspirone 15 mg tablet 15 mg PO BID 10/07/24 10/07/24 hydrochlorothiazide 12.5 mg tablet 12.5 mg PO DAILY 10/07/24 10/07/24 lorazepam 0.5 mg tablet 0.5 mg PO Q6H PRN anxiety 10/07/24 10/07/24 losartan 50 mg tablet 50 mg PO DAILY 10/07/24 10/07/24 Previous Rx's ?Medication ?Instructions ?Recorded albuterol sulfate 2.5 mg/3 mL 2.5 mg (3 mL) inhalation Q4-6H PRN 08/04/22 (0.083 %) solution for nebulization shortness of breath or wheezing #75 mL albuterol sulfate 90 mcg/actuation 2 puff inhalation Q4-6H PRN 08/04/22 aerosol inhaler shortness of breath or wheezing #1 packet Allergies Allergy/AdvReac Type Severity Reaction Status Date / Time cephalexin (From Keflex) AdvReac Mild Nausea Verified 07/28/23 17:55 Penicillins AdvReac Mild Nausea Verified 07/28/23 17:55 Review of Systems Status of ROS: Reports: 10 or more systems reviewed and unremarkable except as noted in History and below Narrative: Constitutional: No fevers, no weight gain or loss. Eyes: No discharge. No vision changes. HENT: No congestion, no sore throat, no ear pain. Cardiovascular: No chest pain, no palpitations. Respiratory: No shortness of breath, no wheezes, no cough. Gastrointestinal: No abdominal pain, no vomiting, no diarrhea. Genitourinary: No dysuria, no hematuria. Musculoskeletal: Normal range of motion. Skin: No rashes, no pruritis. Neurological: No dizziness, weakness, sensory change, speech change. Endo/Heme/Allergies: No bruising or bleeding. No polydipsia. Pysch: no suicidality, no anxiety, no insomnia. All other systems reviewed and are negative. [facility] Medical History Wheezing ?R06.2 - Wheezing (ICD-10) Anxiety ?F41.9 - Anxiety disorder, unspecified (ICD-10) Surgical History History of ?Z98.891 - History of uterine scar from previous surgery (ICD-10) Social History Smoking Status: Light tobacco smoker What tobacco products do you use: cigarettes Do you use any of these nicotine containing products: E-Cigarettes Second hand tobacco smoke exposure: Yes How often do you have a drink containing alcohol: never How often do you have six or more drinks on one occasion: Never AUDIT-C Alcohol total score: 0 Non-prescribed substance use: denies use Exam Narrative: Exam Narrative: Constitutional: Well-developed, well-nourished, no acute distress. HEENT: Normocephalic, atraumatic. Neck: Normal range of motion. Nontender. Supple. Heart: Regular. No murmurs. Normal rate. Intact distal pulses. Lungs: Clear to auscultation. No chest discomfort. No wheezes, rhonchi, or rales. Abdomen: Normal bowel sounds. Nontender. No rebound tenderness. Genitalia: Deferred. Back: No midline tenderness. Normal range of motion. Extremities: Normal range of motion. No injury. Skin: Intact. No rash. Warm. No erythema or pallor. Neurologic: No altered sensation. No weakness. Alert and oriented. Psychiatric: No suicidality. No anxiety or depression. No insomnia. Nursing notes and vitals signs are reviewed. Const: Vital Signs, click to edit/add: Vital Signs - 24 hr 10/07/24 11:22 Temperature 98.1 F Pulse Rate [Pulse Oximeter] 74 Respiratory Rate 20 Blood Pressure [Ri ght Upper Arm] 138/86 Pulse Oximetry 98 Oxygen Delivery Me thod Room Air Course Vital Signs Vital signs: Initial Vital Signs Temperature 98.1 F 10/07/24 11:22 Temperature Source Temporal Artery Scan 10/07/24 11:22 Pulse Rate 74 10/07/24 11:22 Respiratory Rate 20 10/07/24 11:22 Blood Pressure 138/86 10/07/24 11:22 Blood Pressure Mean 103 10/07/24 11:22 Blood Pressure Position Sitting 10/07/24 11:22 Pulse Oximetry 98 10/07/24 11:22 Oxygen Delivery Method Room Air 10/07/24 11:22 Vital Signs Temperature 98.1 F 10/07/24 11:22 Pulse Rate 74 10/07/24 11:22 Respiratory Rate 20 10/07/24 11:22 Blood Pressure 138/86 10/07/24 11:22 Pulse Oximetry 98 10/07/24 11:22 Oxygen Delivery Method Room Air 10/07/24 11:22 Temperature 98.1 F 10/07/24 11:22 Pulse Rate 74 10/07/24 11:22 Respiratory Rate 20 10/07/24 11:22 Blood Pressure 138/86 10/07/24 11:22 Pulse Oximetry 98 10/07/24 11:22 Oxygen Delivery Method Room Air 10/07/24 11:22 Medical Decision Making MDM Narrative Medical decision making narrative: This patient comes in with concern about slow heart rate then faster heart rate. She states that she does feel occasional palpitations and otherwise has no other symptoms. An EKG is obtained and does show frequent PVCs and a pattern of trigeminy. I explained mechanisms related to PVCs with the patient and gave reassurance is. I did discuss other lab and imaging options. She states that she has had an echocardiogram. She declined any other studies at this time. She is okay to be discharged home. ECG Data Attestation: I personally reviewed and interpreted this ECG as follows: Interpretation: Sinus rhythm with frequent PVCs. There are no specific ST or T-wave abnormalities. Rate is 74 beats per minute. Discharge Plan Discharge Clinical Impression: Palpitations, Ventricular premature beats Patient Disposition: Home, Self-Care Condition: Stable Additional Instructions: Continue current plans. Follow up with MD as needed or return if worsening symptoms occur. Prescriptions: No Action valacyclovir 500 mg tablet 500 mg PO Patient Comments: take 1 tablet by mouth daily albuterol sulfate [Ventolin HFA] 90 mcg/actuation HFA aerosol inhaler inhalation Patient Comments: INHALE TWO PUFFS BY MOUTH FOUR TIMES DAILY NEEDED for wheezing methylphenidate HCl [Concerta] 54 mg tablet extended release 24hr 54 mg PO DAILY Patient Comments: TAKE ONE TABLET BY MOUTH DAILY losartan 50 mg tablet 50 mg PO DAILY lorazepam 0.5 mg tablet 0.5 mg PO Q6H PRN (Reason: anxiety) buspirone 15 mg tablet 15 mg PO BID hydrochlorothiazide 12.5 mg tablet 12.5 mg PO DAILY albuterol sulfate 90 mcg/actuation HFA aerosol inhaler 2 puff inhalation Q4-6H PRN (Reason: shortness of breath or wheezing) Qty: 1 0RF albuterol sulfate 2.5 mg /3 mL (0.083 %) solution for nebulization 2.5 mg inhalation Q4-6H PRN (Reason: shortness of breath or wheezing) Qty: 75 0RF Follow Up/Referrals: Provider,Not a Local [Non-Staff, Family Practice] Stand Alone Forms: [employer] Info Instructions
== END 2024-10-07 12:17 | disposition home or self-care (01) ==
PROVIDERS: Emergency Provider Emergency Medicine Emergency Medical Services; PCP Family Medicine
DX: I49.3 Ventricular premature depolarization (principal)
CPT/HCPCS: 93005; 99284